=== PATIENT | female | born 1940 | race Caucasian/White ===

== ENCOUNTER 2021-04-26 10:14 | Emergency (ER) | payer MEDICARE, SELFPAY ==
[2021-04-26] VITALS (10 sets, daily range): BP systolic 135–170; BP diastolic 65–81; PULSE 58–75; RESP 16; TEMP 36.9; O2SAT 94–98; BMI 24.1
--- NOTE | 2021-04-26 10:36 | DI.RAD.S_ITS ---
PROCEDURE: XR RIBS LT MIN 3V W CXR1V INDICATIONS: mechanical fall/pain TECHNIQUE: 2 views of the right ribs were acquired, along with a single view chest. COMPARISON: None. FINDINGS: Surgical changes and devices: None. Bones and chest wall: No fractures or dislocations. No suspicious bony lesions. Overlying soft tissues appear unremarkable. Lungs and pleura: No pleural effusions or pneumothorax. Lungs appear clear. Mediastinum: Mediastinal contours appear normal. Heart size is normal. IMPRESSION: No trauma found. No pneumothorax identified. Delayed plain films may assist in identifying nondisplaced rib fractures if clinically indicated, and nuclear medicine bone scan would provide a very accurate method for detecting rib injury if clinically necessary. Dictated by: Byron Concepcion M.D. on 04/26/2021 at 11:14 Approved by: Byron Concepcion M.D. on 04/26/2021 at 11:19
--- NOTE | 2021-04-26 10:36 | DI.RAD.S_ITS ---
PROCEDURE: XR HIP W PEL IF DONE LT 2V INDICATIONS: mechanical fall/pain TECHNIQUE: AP pelvis with lateral view(s) of the left hip(s). COMPARISON: [facility], CR, XR FEMUR LT MIN 2V, 04/26/2021, 10:35. FINDINGS: Bones: Prior left hip screw fixation. No hardware fracture. No fractures or dislocations. Pelvic ring appears intact. No suspicious bony lesions. Soft tissues: The visualized bowel gas pattern is normal. No suspicious soft tissue calcifications. IMPRESSION: No acute osseous abnormality. No acute fracture or hardware fracture seen. Prior screw fixation of the left hip. Dictated by: Luis Carter M.D. on 04/26/2021 at 11:30 Approved by: Luis Carter M.D. on 04/26/2021 at 11:31
--- NOTE | 2021-04-26 10:36 | DI.RAD.S_ITS ---
PROCEDURE: XR FEMUR LT MIN 2V INDICATIONS: mechanical fall/pain TECHNIQUE: 4 views of the femur were acquired. COMPARISON: [facility], CR, XR HIP W PEL IF DONE LT 2V, 04/26/2021, 10:35. FINDINGS: Bones: No femoral shaft fracture. A prior left hip screw fixation hardware. No dislocations. No suspicious bony lesions. Soft tissues: No suspicious soft tissue calcifications or masses. IMPRESSION: No femoral shaft fracture. Dictated by: Luis Carter M.D. on 04/26/2021 at 11:31 Approved by: Luis Carter M.D. on 04/26/2021 at 11:33
--- NOTE | 2021-04-26 10:39 | DI.CT.S_ITS ---
PROCEDURE: CT HEAD/BRAIN WO CON INDICATIONS: fall/hit head TECHNIQUE: Noncontrast 4.5 mm thick angled axial sections acquired from the foramen magnum to the vertex, with coronal and sagittal reformats. For radiation dose reduction, the following was used: automated exposure control, adjustment of mA and/or kV according to patient size. COMPARISON: None. FINDINGS: Image quality: Excellent. CSF spaces: Basal cisterns are patent. No extra-axial fluid collections. The ventricles are symmetric in size and shape. Brain: No intracranial bleeds or masses. There is cerebral volume loss for age, with resultant ventricular and sulcal prominence. There are periventricular and deep white matter chronic small vessel ischemic changes. There is intracranial internal carotid artery atherosclerosis. Skull and face: Postsurgical changes are noted involving anterior wall of left maxillary sinus. No acute skull or facial bone fracture is seen. Sinuses: Mild mucosal thickening in bilateral maxillary sinuses are seen. Rest of the sinuses and mastoid air cells are well aerated. IMPRESSION: 1. No CT evidence of acute intracranial pathology. 2. Diffuse atrophy and moderate white matter chronic small vessel ischemic changes. 3. No acute skull fracture. Prior surgery involving left maxillary sinus as above. Mild mucosal thickening in bilateral maxillary sinuses. Dictated by: Jeyson Vega M.D. on 04/26/2021 at 10:53 Approved by: Jeyson Vega M.D. on 04/26/2021 at 10:55
[2021-04-26] MEDS: HYDROCODONE/ACET 5/325 TABLET 2 TAB PO (14:34)
--- NOTE | 2021-04-26 14:48 | PC.NURSE ---
Pt given a walker and walker training.
--- NOTE | 2021-04-26 14:53 | ED_ITS ---
HPI - Fall General Chief Complaint: Fall Stated Complaint: fell yesterday, can't walk on left side Time Seen by Provider: 04/26/21 14:22 Source: patient Limitations: no limitations History of Present Illness HPI Narrative: This is an 80-year-old female comes emergency department after a ground level fall. Patient states that she tripped and fell. She states she did strike her head. She does take aspirin. Patient denies any headache, neck pain or low back pain. Patient has had some mild left-sided chest discomfort but not currently. She denies any shortness of breath. No nausea or vomiting. No dizziness or lightheadedness. Patient denies any numbness or tingling of her extremities. Her main complaint is pain/discomfort in her left upper thigh. She has pain with movement and weight-bearing. She denies any numbness or ti ngling. She has chronic urinary issues but no acute changes. No new l changes to bowel or bladder control. Patient has not appreciated any skin changes. She walks independently without a walker but does use a cane at home. Related Data Previous Rx's Medication Instructions Recorded hydrocodone 5 mg-acetaminophen 325 1 tab PO Q6H PRN #10 tab 04/26/21 mg tablet Allergies Allergy/AdvReac Type Severity Reaction Status Date / Time No Known Drug Allergies Allergy Verified 04/26/21 14:34 Review of Systems Review of Systems ROS Unobtainable: All systems reviewed & are unremarkable except as noted in HPI and below Exam Narrative Exam Narrative: GEN: Patient appears in mild distress. HEAD: No evidence of trauma, no raccoon/Cortez sign. NECK: Nontender, painless range of motion, trachea midline Negative Nexus criteria, there is no mid line tenderness, distracting injury, altered mental status, neuro deficit, recent EtOH. EYES: PERRLA, EOMI ENT: External inspection normal, trachea is midline, Nares are clear, no septal hematoma, no dental or oral injury, airway is normal and with normal occlusion, No bony tenderness RESP: Chest is nontender and has symmetric movement, no ecchymosis, breath sounds are normal no crackles, wheezes or rales CVS: Heart sounds are normal, no murmur noted, No JVD. ABG/GI: Nontender, soft, normal bowel sounds, no distention, no organomegaly, pelvic rock is negative NEURO: Oriented AOx3, neuro is grossly intact, sensation and motor is normal all 4 extremities moving, cranial nerves II through XII are intact, GCS is 15 PSYCH: Normal mood and affect SKIN: Intact, warm and dry, no crepitus and without decubitus BACK: No CVA tenderness, no vertebral tenderness, no step-off's, no crepitus EXT: Atraumatic, hips is very mildly tender to palpation. Patient has pain with active range of motion and is mildly increased with passive but not significantly on the left leg. She does not have any bony tenderness delgado of the lower extremity., no pedal edema, normal color and temperature, cap refill bilateral lower extremities. Initial Vital Signs Initial Vital Signs: Vital Signs Temperature 98.4 F 04/26/21 10:34 Pulse Rate 71 04/26/21 10:34 Respiratory Rate 16 04/26/21 10:34 Blood Pressure 159/81 H 04/26/21 10:34 Pulse Oximetry 97 04/26/21 10:34 Scores GCS Commerce coma scale eye opening: Spontaneous Commerce coma scale verbal response: Orientated Commerce coma scale motor response: Obey commands Jamel coma scale total score: 15 Course Orders Ordered: Discontinued Medications Hydrocodone Bitart/Acetaminophen (Hydrocodone/Acet 5/325 Tablet) 2 tab PO NOW ONE Stop: 04/26/21 14:23 Last Admin: 04/26/21 14:34 Dose: 2 tab Documented by: BOBBI Vital Signs Vital signs: Vital Signs - 8 hr 04/26/21 12:49 04/26/21 12:50 04/26/21 13:00 Pulse Rate 59 L 58 L 59 L Blood Pressure 155/67 H 135/65 Pulse Oximetry 96 94 97 04/26/21 13:30 04/26/21 13:31 04/26/21 14:00 Pulse Rate 71 67 63 Blood Pressure 166/69 H Pulse Oximetry 97 97 95 04/26/21 14:01 04/26/21 14:42 Pulse Rate 60 75 Blood Pressure 153/67 H 170/68 H Pulse Oximetry 95 97 MDM - Fall Imaging Data CT scan - head: Radiologist's Impression: [address] [id number] Scan ReportSigned Patient: BakerEvi taylor KOBER#: [id number]: 1940Acct:[id number]/Sex: 80 / FDate of Service: 04/26/21Loc: EDAccession Number: [id number] Procedure: CT head/brain wo con Ordering Provider: Marietta Kent D.O. PROCEDURE: CT HEAD/BRAIN WO CON INDICATIONS: fall/hit head TECHNIQUE: Noncontrast 4.5 mm thick angled axial sections acquired from the foramen magnum to the vertex, with coronal and sagittal reformats. For radiation dose reduction, the following was used: automated exposure control, adjustment of mA and/or kV according to patient size. COMPARISON: None. FINDINGS: Image quality: Excellent. CSF spaces: Basal cisterns are patent. No extra-axial fluid collections. The ventricles are symmetric in size and shape. Brain: No intracranial bleeds or masses. There is cerebral volume loss for age, with resultant ventricular and sulcal prominence. There are periventricular and deep white matter chronic small vessel ischemic changes. There is intracranial internal carotid artery atherosclerosis. Skull and face: Postsurgical changes are noted involving anterior wall of left maxillary sinus. No acute skull or facial bone fracture is seen. Sinuses: Mild mucosal thickening in bilateral maxillary sinuses are seen. Rest of the sinuses and mastoid air cells are well aerated. IMPRESSION: 1. No CT evidence of acute intracranial pathology. 2. Diffuse atrophy and moderate white matter chronic small vessel ischemic changes. 3. No acute skull fracture. Prior surgery involving left maxillary sinus as above. Mild mucosal thickening in bilateral maxillary sinuses. Dictated by: Jeyson Vega M.D. on 04/26/2021 at 10:53 Approved by: Jeyson Vega M.D. on 04/26/2021 at 10:55 Chest x-ray: Radiologist's Impression: Evi Baker 80 F [address] [id number] ReportSigned Patient: Baker,Evi JMR#: [id number]: 1940Acct:[id number]/Sex : 80 / FDate of Service: 04/26/21Loc: EDAccession Number: [id number] Procedure: XR ribs LT min 3V w CXR1V Ordering Provider: Mank,Marietta C D.O. PROCEDURE: XR RIBS LT MIN 3V W CXR1V INDICATIONS: mechanical fall/pain TECHNIQUE: 2 views of the right ribs were acquired, along with a single view chest. COMPARISON: None. FINDINGS: Surgical changes and devices: None. Bones and chest wall: No fractures or dislocations. No suspicious bony lesions. Overlying soft tissues appear unremarkable. Lungs and pleura: No pleural effusions or pneumothorax. Lungs appear clear. Mediastinum: Mediastinal contours appear normal. Heart size is normal. IMPRESSION: No trauma found. No pneumothorax identified. Delayed plain films may assist in identifying nondisplaced rib fractures if clinically indicated, and nuclear medicine bone scan would provide a very accurate method for detecting rib injury if clinically necessary. Dictated by: Byron Concepcion M.D. on 04/26/2021 at 11:14 Approved by: Byron Concepcion M.D. on 04/26/2021 at 11:19 Extremity x-ray #1: Radiologist's Impression: [address] [id number] ReportSigned Patient: Evi Baker JMR#: [id number]: 1940Acct:[id number]/Sex: 80 / FDate of Service: 04/26/21Loc: [facility] corwin Number: [id number] Procedure: XR hip w pel if done LT 2V Ordering Provider: Marietta Kent D.O. PROCEDURE: XR HIP W PEL IF DONE LT 2V INDICATIONS: mechanical fall/pain TECHNIQUE: AP pelvis with lateral view(s) of the left hip(s). [facility], 10:35. FINDINGS: Bones: Prior left hip screw fixation. No hardware fracture. No fractures or dislocations. Pelvic ring appears intact. No suspicious bony lesions. Soft tissues: The visualized bowel gas pattern is normal. No suspicious soft tissue calcifications. IMPRESSION: No acute osseous abnormality. No acute fracture or hardware fracture seen. Prior screw fixation of the left hip. Dictated by: Luis Carter M.D. on 04/26/2021 at 11:30 Approved by: Luis Carter M.D. on 04/26/2021 at 11:31 Extremity x-ray #2: Radiologist's Impression: [address], [place] [address]RZuk ReportSigned Patient: Evi Baker JMR#: [id number]: 1940Acct:[id number]/Sex: 80 / FDate of Service: 04/26/21Loc: EDAccession Number: [id number] Procedure: XR femur LT min 2V Ordering Provider: Marietta Kent D.O. PROCEDURE: XR FEMUR LT MIN 2V INDICATIONS: mechanical fall/pain TECHNIQUE: 4 views of the femur were acquired. COMPARISON: [facility], CR, XR HIP W PEL IF DONE LT 2V, 04/26/2021, 10:35. FINDINGS: Bones: No femoral shaft fracture. A prior left hip screw fixation hardware. No dislocations. No suspicious bony lesions. Soft tissues: No suspicious soft tissue calcifications or masses. IMPRESSION: No femoral shaft fracture. Dictated by: Luis Carter M.D. on 04/26/2021 at 11:31 Approved by: Luis Carter M.D. on 04/26/2021 at 11:3 MDM Narrative Medical decision making narrative: This is an 80-year-old female with ground level fall who continues to have left thigh pain. Patient has had pain with ambulation. She has not been taking anything for pain. She did strike her head. Head CT was negative patient was clinically cleared for cervical spine. She does not have any rib fractures. Hip/pelvic and femur x-rays are negative and patient has mild tenderness on her greater trochanter. Patient was given Logan his apartment and ambulated with walker which she tolerated. Patient was given discharge instructions with plan for follow-up in the next week patient is not improving and return precautions were discussed as well. All questions were answered patient feels comfortable with plan. Discharge Plan Departure Patient Disposition: Home Clinical Impression: Fall Leg pain Qualifiers: Laterality: left Qualified Code(s): M79.605 - Pain in left leg Instructions: How to Prevent Falls, DI for Hip Pain Prescriptions: New hydrocodone-acetaminophen 5-325 mg tablet 1 tab PO Q6H PRN (Reason: pain) Qty: 10 RF: 0 Referrals: Olivia Vitale PA-C [Primary Care Provider] -
== END 2021-04-26 14:53 | disposition home or self-care (01) ==
PROVIDERS: Emergency Provider Emergency Medicine; PCP Physician Assistant Medical
DX: M79.652 Pain in left thigh (principal); S09.90XA Unspecified injury of head, initial encounter; W19.XXXA Unspecified fall, initial encounter
CPT/HCPCS: 70450; 71101; 73502; 73552; 99284

== ENCOUNTER → 2024-06-05 08:37 | Outpatient (CLI) | payer MEDICARE, SELFPAY ==
[2024-06-05 09:23] LABS: Add Manual Diff / Slide Review NO; Basophils Absolute Auto 100 /uL (0-100); Basophils Percent Auto 0.7 % (0-2); Eosinophils Absolute Auto 300 /uL (0-450); Eosinophils Percent Auto 3.4 % (2-4); Hematocrit 38.7 % (36-46); Hemoglobin 13.3 g/dL (12.0-16.0); Lymphocytes Absolute Auto 3400 /uL (1100-4500); Lymphocytes Percent Auto 37.7 % (25-40); Mean Corpuscular HGB Conc 34.3 % (30-36); Mean Corpuscular Hemoglobin 32.5 PG (26-34); Monocytes Absolute Auto 900 /uL (0-900); Monocytes Percent Auto 9.9 % (3-14); Neutrophils Absolute Auto 4300 /uL (1500-7000); Neutrophils Percent Auto 48.3 % (50-75); Platelet Count 218 X10^3/uL (150-400); Red Blood Cell Count 4.08 X10^6/uL (4.0-5.2); Red Cell Distribution Width 12.9 % (11.6-14.8); White Blood Cell Count 8.9 X10^3/uL (4.5-11.0)
[2024-06-05 09:25] LABS: Appearance Urine UA CLEAR; Bilirubin Urine UA NEGATIVE (NEGATIVE); Color Urine UA YELLOW; Glucose Urine UA NEGATIVE (Negative); Ketones Urine UA NEGATIVE (NEGATIVE); Leukocyte Esterase Urine UA 1+ (NEGATIVE); Nitrite Urine UA NEGATIVE (Negative); Occult Blood Urine UA TRACE-INTACT (Negative); Protein Urine UA NEGATIVE (Negative); Specific Gravity Urine UA 1.015 (1.000-1.035)
[2024-06-05 09:29] LABS: pH Urine UA 6.5 (4.5-8.0)
--- NOTE | 2024-06-05 09:36 | EKG_ITS ---
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
[2024-06-05 09:40] LABS: Hemoglobin A1C% w Est Avg Glu 5.2 % (4.0-6.0)
[2024-06-05 09:43] LABS: Urine Volume 10mL (spun)
[2024-06-05 09:44] LABS: Bacteria Urine Moderate (10-30); Culture Indicated Urine Specimen Cultured; RBC Urine 0-1/HPF (0-5/HPF); Squamous Epithelial Cell Urine 1-5 /HPF (0-5/HPF); WBC Urine 1-5/HPF (0-5/HPF)
[2024-06-05 09:47] LABS: BUN Creatinine Ratio 32.7 (6-22); Blood Urea Nitrogen 17 mg/dL (7-17); Calcium 9.4 mg/dL (8.4-10.2); Carbon Dioxide 24 mmol/L (22-32); Chloride 108 mmol/L (98-107); Estimated Glomerular Filt Rate > 60 mL/min (>60); Glucose 99 mg/dL (80-110); HEMOLYSIS < 15 (0-50); Potassium 4.2 mmol/L (3.4-5.1); Sodium 139 mmol/L (137-145)
== END ==
PROVIDERS: PCP Physician Assistant Medical; Referring Provider Orthopaedic Surgery; Visit Provider Orthopaedic Surgery
DX: Z01.818 Encounter for other preprocedural examination (principal); R73.9 Hyperglycemia, unspecified; Z01.812 Encounter for preprocedural laboratory examination; N39.0 Urinary tract infection, site not specified
CPT/HCPCS: 36415; 80048; 81001; 83036; 85025; 87086; 93005; 93010

== ENCOUNTER 2024-06-17 08:50 | Day surgery (SDC) | payer MEDICARE, SELFPAY ==
--- NOTE | 2024-06-17 | PATH_ITS ---
[facility] Accession Number: [id number] No. of containers..01 Tissue . 01 Material submitted: . colon - DISTAL TRANSVERSE COLON POLYP . 01 Diagnosis: DISTAL TRANSVERSE COLON POLYP: Tubular adenoma. [facility] 06/22/2024 1325 Local . 01 Electronically signed: . Jhonny Barajas MD, Pathologist NPI- [id number] . 01 Gross description: . Received in formalin with two patient identifiers and distal transverse colon polyp, is a single bridges soft tissue fragment, 0.7 x 0.5 x 0.4 cm. Inked blue, bisected, and submitted in A1. ([id number]) /MRV 06/22/2024 1325 Local . 01 Pathologist provided ICD-10: D12.3 . 01 CPT . 885287 Specimen Comment: A courtesy copy of this report has been sent to [phone] Performed at: [address] [address], [place], [place] [id number] MD Jhonny Barajas MD Phone: [phone]
[2024-06-17 10:31] VITALS: BP 139/73; PULSE 71; RESP 14; TEMP 36.2; O2SAT 98
--- NOTE | 2024-06-17 10:39 | PM.HP.1 ---
History of Present Illness History of Present Illness Date Patient Seen: 06/17/24 Chief complaint: Colonoscopy Narrative: History of adenomatous colon polyps need for follow-up colonoscopy. Meds Home Medications and Allergies Home Medications Medication Instructions Recorded Confirmed Type amlodipine 5 mg tablet 5 mg PO DAILY blood pressure 06/17/24 06/17/24 History atorvastatin 40 mg tablet 40 mg PO QPM cholesterol 06/17/24 06/17/24 History levothyroxine 50 mcg tablet 50 mcg PO DAILY 06/17/24 06/17/24 History Allergies Allergy/AdvReac Type Severity Reaction Status Date / Time No Known Drug Allergies Allergy Verified 06/17/24 10:29 Exam Narrative Exam Narrative: Oropharynx free of lesions Chest clear to auscultation percussion Cardiac exam reveals no S3 or murmur Assessment & Plan Assessment & Plan narrative: History of adenomatous colon polyps need for follow-up colonoscopy. Risks, benefits, alternatives have been explained. In all likelihood this will be her last colonoscopy Time-Based Coding :: [TOTAL MINUTES] spent with patient and on the chart (including review of chart, obtaining history, exam, reviewing outside data, placing orders, documenting exam and treatment plan, and counseling patient) on [DATE].
[2024-06-17] MEDS: LACTATED RINGERS 1,000 ML 42 ML IV (10:41)
--- NOTE | 2024-06-17 10:41 | PM.OP.COLON ---
Operative Date/Time/Diagnoses Date of procedure: 06/17/24 Pre-op diagnosis: See indication and findings Procedure & Clinicians Study performed: Colonoscopy Indications: History of polyps Surgeon: Keanu Rivera Procedure Notes Procedure in detail: After informed consent was obtained the patient was placed in left lateral decubitus position. The video colonoscope was introduced the rectum slowly advanced cecum. Preparation was good. On slow withdrawal mucosa was carefully examined. The scope was removed. The patient tolerated procedure well. Blood loss none Complications none Sedation mac Findings 1. 1+ cm semi pedunculated polyp in the distal transverse colon hot snared and removed completely. 2. Extensive left-sided diverticulosis and of fairly tortuous colon 3. Otherwise negative colonoscopy to cecum Will be in touch regarding her pathology. She should have no recall.
[2024-06-17 12:00] VITALS: BP 105/54; PULSE 69; RESP 20; TEMP 36; O2SAT 95
[2024-06-17 12:05] VITALS: BP 105/57; PULSE 68; RESP 18; O2SAT 95
[2024-06-17 12:10] VITALS: BP 121/57; PULSE 67; RESP 13; O2SAT 97
[2024-06-17 12:20] VITALS: BP 112/56; PULSE 64; RESP 17; O2SAT 97
== END 2024-06-17 12:38 | disposition home or self-care (01) ==
PROVIDERS: PCP Physician Assistant Medical; Referring Provider Internal Medicine Gastroenterology; Visit Provider Internal Medicine Gastroenterology
PROC: 0DJD8ZZ Inspection of Lower Intestinal Tract, Via Natural or Artificial Opening Endoscopic (ICD-10-PCS; CPT 45378; principal; 2024-06-17 11:00)
DX: Z12.11 Encounter for screening for malignant neoplasm of colon (principal); Z86.010 Personal history of colon polyps; K57.30 Diverticulosis of large intestine without perforation or abscess without bleeding; D12.3 Benign neoplasm of transverse colon
CPT/HCPCS: 45385; J2704

== ENCOUNTER 2024-06-25 08:02 | Inpatient (IN) | payer MEDICARE, SELFPAY ==
[2024-06-24 09:36] VITALS: BMI 23.3
[2024-06-25] VITALS (25 sets, daily range): BP systolic 95–143; BP diastolic 44–77; PULSE 70–97; RESP 12–20; TEMP 35.8–36.8; O2SAT 90–100; BMI 23.3
--- NOTE | 2024-06-25 | DI.RAD.S_ITS ---
PROCEDURE: XR PELVIS 1-2V INDICATIONS: INTER OP FOR RONY TECHNIQUE: Intra-operative view of the pelvis and hip acquired. COMPARISON: None. FINDINGS: Bones: Intraoperative devices prior to placement of arthroplasty prostheses are in expected positions. No fractures or suspicious bony lesions. Soft tissues: Overlying surgical retractors are present, along with other intraoperative changes. IMPRESSION: Left total hip arthroplasty in progress Approved by: Junior Overton M.D. on 06/25/2024 at 17:10
--- NOTE | 2024-06-25 06:45 | DI.RAD.S_ITS ---
PROCEDURE: XR HIP W PEL IF DONE LT 2V INDICATIONS: total left hip revision TECHNIQUE: AP pelvis with lateral view(s) of the left hip(s). COMPARISON: [facility], CR, XR PELVIS 1-2V, 06/25/2024, 13:02. [facility] [place], CR, XR PELVIS WITH LATERAL HIP LEFT, 06/03/2024, 15:27. [facility], CR, XR HIP W PEL IF DONE LT 2V, 04/26/2021, 10:35. FINDINGS: Bones: Left hip arthroplasty projects in the expected location. Retained screw fragment at the proximal left femur is unchanged. No acute fracture. No dislocations. Pelvic ring appears intact. No suspicious bony lesions. Soft tissues: The visualized bowel gas pattern is normal. No suspicious soft tissue calcifications. Skin staple line. Expected postoperative gas. IMPRESSION: Left hip arthroplasty projects in the expected location. Dictated by: Luis Carter M.D. on 06/25/2024 at 16:51 Approved by: Luis Carter M.D. on 06/25/2024 at 16:53
[2024-06-25] MEDS: VANCOMYCIN 1,000 MG/200 ML PIGGYBACK 200 MG IV (08:36)
[2024-06-25] MEDS: ACETAMINOPHEN 325 MG TABLET 975 MG PO (08:36)
[2024-06-25] MEDS: LACTATED RINGERS 1,000 ML 84 ML IV ×2 (08:37→13:33)
--- NOTE | 2024-06-25 10:12 | PM.PREOP ---
Pre-operative Note Interval Note History & Physical reviewed/Exam performed by Physician: Yes Changes to H&P: No
--- NOTE | 2024-06-25 10:13 | PM.OP.1 ---
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 Non-operative management has failed and the patient has requested total hip replacement. The risks, benefits and alternatives to surgery were discussed with the patient prior to proceeding. Risks discussed included, but were not limited to, failure to relieve pain, leg length discrepancy, dislocation, stiffness, infection, nerve damage, deep venous thrombosis, pulmonary embolism, stroke, coma, heart attack, permanent paralysis and , as well as the potential need for eventual revision of the prosthetic. Surgeon: Tenisha William It Disaster Recovery Manager: Antonio Campos Anesthesia Type: General and Spinal Operative Notes Findings: Severe left hip OA, adequate bone Closure Type: primary Specimen(s): none sent Prosthetic devices, grafts, tissues, transplants, or devices: William and nephew R3 size 50, neutral poly liner, one 6.5 mm screw, size 11 synergy standard offset, 36 x +0 Estimated Blood Loss (mL): 250 Blood products transfused: none Procedure in detail: The patient was seen in the pre-operative area, where the patient identified the left hip as the operative site and this was marked with my initials. The patient received pre-operative antibiotics and was taken to the operating room and placed on the operative table in the right lateral decubitus position after satisfactory anesthesia. A second time worker out was performed. The left leg was prepared from the ankle to the iliac crest with ChloroPrep in the usual fashion and draped through sterile drapes. A PA was used during the procedure and was essential for intraoperative retraction and safe implantation of the components. The hip was approached through an approximately 24 cm incision centered over the greater trochanter and curving gently posteriorly as it went proximally. It was also extended so it could incorporate part of the prior extensive incision for the previous dynamic hip screw plate. This was carried sharply to the fascia selam, which was divided and retracted with a self retaining retractor. The trochanteric bursa was excised with care being taken to avoid the sciatic nerve, which was identified and protected throughout the case. The short external rotators were incised and the capsulomuscular flap was raised and tagged for later repair. The hip was dislocated. Next attention was directed to the plate. Dissection was carried out down along the plate screws. The screws were was meticulously identified. The plate was carefully removed after removing the screws. One of the screw heads was broken. We removed the plate and then we dissected down around the broken screw head. We used the broken screw removal system and over reamed over the screw and removed a portion of the screw which was captured in the Reamer. The femoral head screw was very very adherent to bone. I dislocated the hip prior to attempting to remove the femoral head screw. We tried to turn the femoral head screw and it was clearly very stuck in the bone. A Femoral neck osteotomy performed approximately 15 mm above the lesser trochanter. I then used an oscillating saw to remove the bone from around the femoral head screw. We carefully dissected it out cephalad to the femoral neck cut. The femoral head screw was then removed by advancing it into the hip region. Bone from the femoral head was saved and was prepared for packing some of the holes along the lateral aspect of the femur. Retractors were placed around the femur. The canal was opened with a box cutting osteotome, followed by a T handled reamer and a lateralizing reamer. The smallest broach was then used, followed by sequential broaching until there was good stability of the broach in the femur. There was adequate stability of the broach in the femur and it was felt we could probably go with uncemented technology. Retractors were placed to expose the acetabulum. The labrum and central soft tissues were removed. Reaming was performed initially going up in 2 mm increments, then 1 mm increments until good bite was obtained with an odd sized reamer. The cup 1 mm larger than the last reamer was then inserted using the appropriate anteversion guides. It was further stabilized with a single screw. A trial neutral liner was placed. The broach was placed in the canal. A trial head and neck were then placed and the hip relocated and checked for leg length and stability. An intraoperative film confirmed the component position and no evidence of fracture. There was a portion of 1 of the screws still noted in the femur more distally. The leg length and offset appeared appropriate. The patient was stable in the position of sleep, of squatting, and could be put through a range of motion with 45 degrees internal rotation without dislocation. At 90 degrees flexion, internal rotation to 80? was possible before dislocation. This was felt to be satisfactory and the appropriate components were opened, and the trials were removed. The acetabular liner was impacted into position. The final stem was then impacted into the prepared femoral canal. A brief Betadine soak was performed while trialing with head options. The hip was meticulously irrigated with normal saline. We got 1 more check x-ray just to confirm the position of the stem distally, the relationship to the broken screw, leg length and offset and that there was no fracture either proximally or distally. Finally the femoral head was impacted onto the stem. The acetabulum was cleared of all material and the hip relocated one final time. The capsulomuscular flap was then repaired to the greater trochanter though an awl hole using the tag sutures. The short external rotators were repaired with a nonabsorbable suture. A Betadine soak was performed and we also used pulse lavage. The fascia selam was closed with Vicryl. We also oversewed the fascia and the vastus lateralis fascia. The subcutaneous layer was closed with barbed sutures and surgical glue. A kira dressing was applied and the patient was taken to recovery having tolerated the procedure well. Complications: none Post-operative Condition: stable Disposition: Acute Care Plan for aftercare: The patient will be maintained on a standard total hip replacement protocol with weight bearing as tolerated and posterior hip precautions. The patient will receive Aspirin and sequential compression devices for DVT prophylaxis. The patient will be discharged home when safe for the home environment.
[2024-06-25] MEDS: CEFAZOLIN 2 GM/100 ML PREMIX 100 ML IV ×2 (11:30→19:37)
[2024-06-25] MEDS: TRANEXAMIC ACID 1,000 MG VIAL 1000 MG INJ ×2 (11:36→13:33)
--- NOTE | 2024-06-25 11:41 | SUR.OPER ---
Lateral on padded OR bed. Gel axillary roll. Arms secured on padded armboard with pillow supporting top arm. Padded hip positioner braces x4 - anterior and posterior chest and pelvis. Additional gel pad used anterior pelvis. Gel pad under bottom leg from knee to foot and secured with tape over sheet.
[2024-06-25] MEDS: BUPIVACAINE LIPOSOME 266 MG/20 ML VIAL INJ (11:49)
[2024-06-25] MEDS: BUPIVACAINE 0.25% (PF) 60 ML, EPINEPHrine 0.3 MG INJ (11:49)
[2024-06-25] MEDS: ONDANSETRON 4 MG/2 ML INJ IV (14:33)
[2024-06-25] MEDS: HYDROMORPHONE 1 MG INJ IV ×4 (14:34→14:49)
[2024-06-25] MEDS: OXYCODONE IR 5 MG TABLET PO (14:49)
[2024-06-25] MEDS: fentaNYL 100 MCG/2 ML INJ IV ×2 (14:57→15:03)
[2024-06-25] MEDS: ACETAMINOPHEN 325 MG TABLET 650 MG PO (16:42)
[2024-06-25] MEDS: LACTATED RINGERS 1,000 ML 100 ML IV (16:52)
[2024-06-25] MEDS: ATORVASTATIN 20 MG TABLET 40 MG PO (16:54)
--- NOTE | 2024-06-25 17:00 | PC.NURSE ---
1551 Pt arrived in bed from PACU, alert and oriented, VSS, on 2L NC post medication administration sats 99%, able to wean to room air 96%. dressing to L hip CDI with MARCIE drain in place. Pain 3/10 upon arrival. Oriented to room and call light system, daughter Scarlet at bedside, no further needs at this time, bed low and locked, call light within reach, will continue to monitor.
[2024-06-25] MEDS: IBUPROFEN 400 MG TABLET PO (19:39)
[2024-06-25] MEDS: DOCUSATE 100 MG CAPSULE PO (20:51)
[2024-06-25] MEDS: ASPIRIN EC 81 MG TABLET PO (20:51)
[2024-06-26] MEDS: ACETAMINOPHEN 325 MG TABLET 650 MG PO ×2 (00:50→09:20)
[2024-06-26] MEDS: CEFAZOLIN 2 GM/100 ML PREMIX 100 ML IV (02:54)
[2024-06-26 03:04] VITALS: BP 117/59; PULSE 74; RESP 18; TEMP 36.1; O2SAT 91
[2024-06-26] MEDS: LEVOTHYROXINE 50 MCG TABLET PO (05:55)
[2024-06-26 06:25] LABS: Hematocrit 33.9 % (36-46); Hemoglobin 11.6 g/dL (12.0-16.0)
--- NOTE | 2024-06-26 07:43 | PM.DS.1 ---
History of Present Illness History of Present Illness Date Patient Seen: 06/26/24 Time Patient Seen: 07:30 Chief complaint: Left Total Hip Arthroplasty Narrative: The patient has had progressively worsening left hip pain with radiographic changes consistent with arthritis. Non-operative management has failed and the patient has requested total hip replacement. The risks, benefits and alternatives to surgery were discussed with the patient prior to proceeding. Risks discussed included, but were not limited to, failure to relieve pain, leg length discrepancy, dislocation, stiffness, infection, nerve damage, deep venous thrombosis, pulmonary embolism, stroke, coma, heart attack, permanent paralysis and , as well as the potential need for eventual revision of the prosthetic. Discharge Providers Provider Date of admission: 06/25/24 08:02 Discharge Date: 06/26/24 Primary care physician: Olivia Vitale PA-C Consults: 06/25/24 06:45 Consult to Anesthesiology Routine Comment: Consulting Provider: Anesthesiologist Reason for consultation: Regional block for post operative pain control Has provider been notified: No 06/25/24 15:52 Consult to Discharge Planning Routine Comment: Consult to Occupational Therapy Evaluate & Treat Comment: Physician Instructions: Evaluate and treat Consult to Physical Therapy Evaluate & Treat Comment: Physician Instructions: post op RONY protocol Discharge provider: Romain Cho PA-C Summary Hospital Course Discharge Diagnosis: 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 Hospital Course: Procedure: Conversion prior left hip surgery to total hip arthroplasty with removal of retained internal fixation and placement of a left total hip arthroplasty Findings: Severe left hip OA, adequate bone Closure Type: primary Specimen(s): none sent Prosthetic devices, grafts, tissues, transplants, or devices: William and nephew R3 size 50, neutral poly liner, one 6.5 mm screw, size 11 synergy standard offset, 36 x +0 Estimated Blood Loss (mL): 250 Blood products transfused: none Status at Discharge Cognitive/behavioral status at discharge: oriented Functional status at discharge: uses cane/walker Overall status at discharge: patient is back to baseline Time Spent with Patient Time spent: Less than 30 minutes Exam Vital Signs (past 8 hours): - 06/26/24 03:04 Temperature 97 F L Pulse Rate 74 Respiratory Rate 18 Blood Pressure 117/59 L Pulse Oximetry 91 Oxygen Flow Rate 0 Fraction of Inspired Oxygen 28 SaO2/FiO2 Ratio 350 Oxygen Delivery Method Nasal Cannula Oxygen Flow Rate 0 Narrative Exam Narrative: Patient is found sitting comfortably in bed. Pain has been controlled with only Tylenol. She is able to get up with assistance 3 times in the evening and urinate on her own. Denies any new numbness or tingling down the left leg. Certain like to discharge home Kira dressing appears to be intact and functioning appropriately. No increased pain or warmth noted with compression of the bilateral posterior calf and thigh. 5/5 Strength in hip flexors, quadricepts, hamstrings, DF, PF, EHL bilaterally. Sensation to light touch intact througout BLE. Objective Labs 06/26/24 06:07 Labs: Laboratory Results - last 24 hr 06/26/24 06:07 Hgb 11.6 L Hct 33.9 L PFSH Medical History (Updated 06/24/24 @ 10:04 by Faby Price RN) HTN (hypertension) Hyperchloremia CVA (cerebral vascular accident) (~2018) Hypothyroid Surgical History (Updated 06/24/24 @ 10:23 by Faby Price RN) History of open reduction and internal fixation (ORIF) procedure (~1999) History of colonoscopy (06/17/24) Social History household members: none Smoking Status: Never smoker alcohol intake: current Discharge Assessment & Plan Assessment and Plan Assessment: Status post total hip arthroplasty revision posterior approach. Plan of Treatment: Plan discharge home pending PT approval. Baseline multimodal pain control with acetaminophen 500 mg and ibuprofen 400 mg every 4 hours. Breakthrough pain with oxycodone 5 mg every 4 hours PRN. Prescribe Zofran 4 mg Q 8 hours as needed for postoperative nausea. Aspirin 81 mg b.i.d. for 6 weeks for DVT prophylaxis. Ambulate with assistive devices as tolerated. Posterior hip precautions. Start physical therapy in 5-10 days. Follow up in clinic in 2 weeks for wound check. Discharge Plan Discharge Plan Patient Disposition: Home Provider Discharge Comment: DC pendint PT approval Discharge orders & Medications Prescriptions: Continued amlodipine 5 mg tablet 5 mg PO DAILY atorvastatin 40 mg tablet 40 mg PO QPM levothyroxine 50 mcg tablet 50 mcg PO DAILY Changed aspirin 81 mg Tablet,Delayed Release (Dr/Ec) 81 mg PO BID Qty: 90 0RF Follow up/Referrals: Olivia Vitale PA-C [Primary Care Provider] - Diet/Activity/Treatments Diet: Diet as Tolerated Activity: Ambulate as tolerated with assistive devices. Cold/Heat Therapy: Apply ice pack to wound site as needed hourly for 15 minutes at a time. Skin/Wound/Dressing Care Report to your healthcare provider any signs of infection, such as:: chills, fever, night sweats, unusual drainage and unusual redness Dressing: Keep dressing clean and dry. May remove kira battery pack after battery . Should dressing become dirty or disrupted replace with gauze and tape. Visit Report/Discharge Packet Stand Alone Forms: Patient Portal/API, Stroke Signs & Symptoms Discharge Data Primary Care Provider: Olivia Vitale VTE Deep Vein Thrombosis/Pulmonary Embolism Present on Admission: No
[2024-06-26 08:00] VITALS: BP 122/59; PULSE 83; RESP 16; TEMP 36.3; O2SAT 99
--- NOTE | 2024-06-26 09:15 | OT.IP.EVAL ---
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) Displaced subtrochanteric fracture of left femur, sequela (06/25/24) Surgery Performed Operation Date: 06/25/24 10:15 Actual Procedures p RONY posterior with Removal of retained internal fixation(Left) - Tenisha William MD Past Medical History (Last Updated 06/24/24 @ 10:04 by Faby Price, RN) CVA (cerebral vascular accident) (~2018) HTN (hypertension) Hyperchloremia Hypothyroid Surgical History (Last Updated 06/24/24 @ 10:23 by Faby Price, RN) History of colonoscopy (06/17/24) History of open reduction and internal fixation (ORIF) procedure (~1999) Occupational Therapy Inpatient Evaluation/Re-Eval M1 PT/OT-IP Prior Functional Status Start: 06/26/24 10:16 Freq: NEEDED Status: Active Protocol: Document 06/26/24 10:16 [facility] (Rec: 06/26/24 10:30 [facility] [id number]) Medical Review Prior Functional Status Communication Independent Mobility and Gait Pt furniture cruises but did not use a device prior. Activities of Daily Living and IADL's Pt states unable to put on her socks. Social History Household Members none Living Arrangements Mobile home Number of Floors (Floors) One Floor Number of Stairs To Enter/Railing? 5 short steps with right rail up Home Environment Standard Height Toilet,Walk in Shower Home Equipment Front Wheel Walker,Straight Cane,Raised Toilet Seat w/ Armrests,Shower Seat with Backrest,Hand Held Shower,Long Handled Sponge,Flight Nurse Additional Social History Comment Pt's daughter lives close by and to stay with her for a couple days. M2 OT-IP Current Condition Start: 06/26/24 10:16 Freq: Status: Active Protocol: Document 06/26/24 10:16 [facility] (Rec: 06/26/24 10:30 [facility] [id number]) Occupational Therapy Current Condition Current Condition Evaluation Date 06/26/24 Treatment Diagnosis S/P L RONY posterior approach Diagnosis Onset Date 06/25/24 Post Operative Precautions Posterior Hip Precautions No Hip Flexion > 90 degrees,No Hip Internal Rotation,No Hip Adduction M3 OT- IP Subjective and Pain Start: 06/26/24 10:16 Freq: Status: Active Protocol: Document 06/26/24 10:16 [facility] (Rec: 06/26/24 10:30 [facility] [id number]) OT- Subjective Occupational Therapy Visit Type Type Initial Evaluation Visit Start Time 09:15 Visit Stop Time 10:00 Occupational Therapy Visit Comments Patient Comments Pt agreed to get up and pt's daughter in the room. Patient/Caregiver Goals TO go home. OT Pain Assessment Pain When Pain Assessed At Rest Pain Present Pain Present Pain Reported Location hip Intensity 5 Scale Used Numeric (0 - 10) M4 OT- IP ADL's Start: 06/26/24 10:16 Freq: Status: Active Protocol: Document 06/26/24 10:16 [facility] (Rec: 06/26/24 10:30 [facility] [id number]) OT TLN-Ggwu-Hstagrx General Evaluation Self-Feeding Ability Independent OT ADL-Grooming General Evaluation Grooming Ability Standby Assistance Areas Needing Assistance Retrieving/Set-up of Grooming Items Comments OT Grooming Comments Able to to while standing with the FWW by the sink. OT ADL-Oral Care General Eval Oral Care Ability Independent OT ADL-Dressing General Eval Upper Body Dressing Ability Independent Lower Body Dressing Ability Minimal Assistance Areas Needing Assistance Socks Comments OT Dressing Comments ABle to show pt use of sock aid and practice LB dressing with visitor information assistant for underwear and pants. Pt states to look into getting a sock aid. OT ADL-Toileting General Evaluation Toileting Ability Minimal Assistance Areas Needing Assistance Manage Clothing Comments OT Toileting Comments Educated best to use wet wipes and stand for hygiene needs to best follow her back precautions. OT ADL-Bathing Comments OT Bathing Comments Educated best to cover the dressing and have assist. M5 OT- IP IADL's Start: 06/26/24 10:16 Freq: Status: Active Protocol: Document 06/26/24 10:16 [facility] (Rec: 06/26/24 10:30 [facility] [id number]) OT-Instrumental Activities of Daily Living Deficits IADL Deficits Identified Deficits Home Safety Awareness Awareness of Need for Assistance at Home Decreased Awareness Ability to Problem Solve Emergency Able to Problem Solve Situations Home Safety Comments Pt is very independent and stubborn per her daughter. Meal Preparation Meal Preparation Caregiver Provides Assist Guitar Instructor Guitar Instructor Caregiver Provides Assist M6 OT- IP Functional Cognition Start: 06/26/24 10:16 Freq: Status: Active Protocol: Document 06/26/24 10:16 [facility] (Rec: 06/26/24 10:30 [facility] [id number]) Cognitive Factors Limiting Selfcare Function Cognitive Ability Level of Alertness Alert Patient Orientation Name,Age,Birthday,Month,Date, Year,Day of Week,Place, Situation Attention Span Ability Capable of Focused Attention, Capable of Sustained Attention Ability to Follow Commands Able to Follow One Step Commands Safety Awareness Decreased Recall of Precautions,Decreased Ability to Apply Precautions, Underestimates Need for Assistance Cognitive Comments Cognitive Assessment Comments Pt needing reminders to recall and follow her hip precautions for ADL and mobility needs. Pt is a little impulsive and needing cues for safety. OT- Vision and Hearing OT- Hearing Assessment OT- Hearing Assessment WFL OT- Vision Assessment Visual Acuity WFL Visual Attentiveness WFL Occular Pursuits WFL M7 OT- IP Mobility and Balance Start: 06/26/24 10:16 Freq: Status: Active Protocol: Document 06/26/24 10:16 [facility] (Rec: 06/26/24 10:30 [facility] [id number]) OT- Bed Mobility Assessment Supine to Sit Supine to Sit Assist Standby Assistance Scooting Scooting to Edge of Bed Standby Assistance OT-Transfer Assessment Sit to and From Stand Sit to and from Stand Contact Guard Assistance Transfers Transfer Ability Standby Assistance,Contact Guard Assistance Technique Transfer Destination Bed,Chair,Toilet Transfer Technique Stand Step Pivot Devices Transfer Assistive Devices Gait Belt,Front Wheeled Walker Comments Mobility Comments Pt able to move her LLE independently to the edge of the bed. CGA to stand and assist to be sure that her RLE does not internally rotate when coming to stand. CGA to ambulate to close SBA. OT- Balance Assessment Sitting Balance and Reactions Static Sitting Balance Ability Good Dynamic Sitting Balance Ability Good Standing Balance and Reactions Static Standing Balance Ability Fair Dynamic Standing Balance Ability Fair M8 OT- IP Objective Assessments Start: 06/26/24 10:16 Freq: Status: Active Protocol: Document 06/26/24 10:16 [facility] (Rec: 06/26/24 10:30 [facility] [id number]) OT Gross Range of Motion Upper Extremity Range of Motion Assessment Within Functional Limits OT Strength Upper Extremity Strength Assessment Within Functional Limits M9 OT- IP Assessment and Plan Start: 06/26/24 10:16 Freq: Status: Active Protocol: Document 06/26/24 10:16 [facility] (Rec: 06/26/24 10:30 [facility] [id number]) OT Summary Assessment and Plan Potential Rehabilitation Potential Excellent Analytic Complexity at Evaluation Low Summary OT Impairments Pain,Strength,Balance, Functional Mobility,Dressing, Toileting,Bathing,Toilet Transfers,Shower Transfers, Activity Tolerance Progress Towards Goals Progressing Toward Goals Assessment Summary Pt low complexity and main barriers are steps, pain, and needing reminders to incorporate her hip precautions for ADL and mobility needs. Pt's daughter present and able to assist pt for ADL and mobility needs. Pt to go home when medically stable and do outpt PT. Goals Grooming Goal Independent Dressing Goal Independent,Flight Nurse,Sock Aid Toileting Goal Independent Bathing Goal Standby Assistance Toilet Transfer Goal Independent Shower Transfer Goal Standby Assistance Days to Meet Goals 5 Frequency of Treatment Other frequency 5x/week Treatment Plan OT Treatment Plan ADL Training,Functional Cognition Training,Functional Mobility,Patient/Family Education,Discharge Planning Discharge Recommendations OT Discharge Recommendations Home with 24/ Assist Available,Outpatient PT Home Equipment Needs sock aid Transportation Needs at Discharge Private Vehicle
[2024-06-26] MEDS: DOCUSATE 100 MG CAPSULE PO (09:19)
[2024-06-26] MEDS: ASPIRIN EC 81 MG TABLET PO (09:19)
[2024-06-26] MEDS: IBUPROFEN 400 MG TABLET PO (09:19)
--- NOTE | 2024-06-26 10:41 | CM.DANOTE ---
DCP Assessment Note: Pt is a 83yo female, resident of [place], is admitted for L RONY. Pt lives in a mobile home, alone, but daughter lives down the street. Pt's Primary Care Provider is Marilyn Vitale PA-C and insurance is [employer]. Reviewed chart and team rounds for pt's medical status and initial discharge needs. DCP met w/patient at bedside; introduced self and role. Patient was found sitting up in chair, alert and oriented, cooperative with assessment. Pt confirmed living situation and good support in daughter. Pt expressed preference in returning home when medically stable with daughter to assist with initial needs. Per OT, recommending home with 20/05 assist, outpatient PT. PT recs pending. Pt declined any need for HH referral or other services in community. Plan: Anticipating discharge home (DC orders in) with daughter to transport, pending final recommendations/eval from PT/OT. CM team will follow closely for coordination of discharge plans. [place] Discharge Planning/Care Management CM Discharge Assessment Start: 06/26/24 10:39 Freq: Status: Active Protocol: Document 06/26/24 10:39 MW (Rec: 06/26/24 10:41 MW [id number]) Discharge Planning Assessment Assigned Sports Equipment Racker DEEPTHI Swift DPASHLY/Assigned Designee Name Clemencia Wynn Contact Information [phone] Advance Directives? No History Provided By Patient Has Patient been admitted in last 30 No days? Prior Living Arrangements Mobile home Comment Daughter lives down the street. Household Members none Type of transporation used prior to Drives own vehicle admit Independent with ADL's Yes Is patient alert and oriented? Yes Caregiver for Another No DME Already Rented / Owned FWW / Walker,Cane Barriers to Discharge No Discharge Plan Home Referrals Initiated None needed Review Status In Process Please Provide Date Initial DC 06/26/24 Assessment Was Performed Next Review Type Continued Stay Review
--- NOTE | 2024-06-26 10:45 | PT.IIE ---
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) Displaced subtrochanteric fracture of left femur, sequela (06/25/24) Surgery Performed Operation Date: 06/25/24 10:15 Actual Procedures p RONY posterior with Removal of retained internal fixation(Left) - Tenisha William MD Surgical History (Last Updated 06/24/24 @ 10:23 by Faby Price, RN) History of colonoscopy (06/17/24) History of open reduction and internal fixation (ORIF) procedure (~1999) Medical History (Last Updated 06/24/24 @ 10:04 by Faby Price RN) CVA (cerebral vascular accident) (~2018) HTN (hypertension) Hyperchloremia Hypothyroid Physical Therapy Inpatient Evaluation/Re-Eval M1 PT/OT-IP Prior Functional Status Start: 06/26/24 13:25 Freq: NEEDED Status: Active Protocol: Document 06/26/24 10:45 AB (Rec: 06/26/24 13:40 AB [id number]) Medical Review Prior Functional Status Medical History Reviewed Yes Communication able to make needs known Mobility and Gait pt stated that she was independent with all mobilities and ambulation without AD Activities of Daily Living and IADL's Pt states unable to put on her socks. Social History Household Members none Living Arrangements Mobile home Number of Floors (Floors) One Floor Number of Stairs To Enter/Railing? 5 steps R rail ascending to enter the house Home Environment Standard Height Toilet,Walk in Shower Home Equipment Front Wheel Walker,Straight Cane,Raised Toilet Seat w/ Armrests,Shower Seat with Backrest,Hand Held Shower Additional Social History Comment pt's daughter will stay with pt and assist as long as needed M2 PT-IP Current Condition Start: 06/26/24 13:25 Freq: NEEDED Status: Active Protocol: Document 06/26/24 10:45 AB (Rec: 06/26/24 13:40 AB [id number]) Physical Therapy Current Condition Current Condition Evaluation Date 06/26/24 Treatment Diagnosis s/p L RONY revision posterior; difficulty in walking Onset Date 06/25/24 M3 PT-IP Subjective Start: 06/26/24 13:25 Freq: NEEDED Status: Active Protocol: Document 06/26/24 10:45 AB (Rec: 06/26/24 13:40 AB [id number]) Subjective Physical Therapy Visit Type Type Initial Evaluation Visit Start Time 10:45 Visit Stop Time 11:45 Number of ANGULAR JS DEVELOPER Visits 0 Physical Therapy Visit Comments Patient Comments agreeable to do PT Therapy Pain Assessment Pain When Pain Assessed At Rest Pain Present Pain Present Pain Reported Location hip Intensity 3 Scale Used L hip Pain Management Techniques Apply Cold,Distraction, Modification of Treatment,Re- positioning,Timing of Activity with Medications M4 PT-IP Mobility and Gait Start: 06/26/24 13:25 Freq: NEEDED Status: Active Protocol: Document 06/26/24 10:45 AB (Rec: 06/26/24 13:40 AB [id number]) PT-Bed Mobility Assessment Supine to Sit Supine to Sit Standby Assistance Sit to Supine Sit to Supine Standby Assistance PT-Transfer Assessment Sit to and From Stand Sit to and from Stand Minimal Assistance,Moderate Assistance,1 Person Assistance ,Use of Upper Extremities Equipment Transfer Assistive Device Gait Belt,Front Wheeled Walker Orthotic/Prosthetic Devices or Brace: No Transfers Transfer Destination Bed,Chair Transfer Technique ambulated Transfer Ability Level of Assist Contact Guard Assistance,1 Person Assistance,Use of Upper Extremities Comments Mobility Comments pt sitting on the chair. pt's daughter in room with pt. obtained PLOF and home set up. reviewed posterior hip precautions with pt. pt initially requiring cues to recall. pt completed sit to stand from the chair mod A and max cues for techniques. LLE with tendency to IR and cued to correct. pt completed sit< >stand x 3 reps. pt ambulated using FWW CGA to EOB. completed sit<>supine SBA and cues for techniques. caregiver training conducted. pt's daughter was able to put safety belt on. assisted pt with sit to stand and ambulation in the hallway using FWW CGA ~ 125 ft. stair climbing training: PT demonstrated and educated pt and daughter on how to do stairs using R rail+ SPC. pt completed up/down steps with daughter assisting min A and cues. assisted pt back to her room. ambulated from w/c to chair using fWW CGA with daughter assisting. positioned pt on the chair. call light and table placed within reach. pt and daughter without further concerns. Gait Assessment Gait Gait Assistance Required: Contact Guard Assist Distance (Feet) 125 Able to Maintain Weight Bearing Status Yes During Gait Assistive Devices Assistive Device Gait Belt,Front Wheeled Walker Orthotic/Prosthetic Devices or Brace: No Gait Deviations General Gait Pattern Antalgic,Decreased Stride Length,Decreased Feet Clearance Factors Limiting Gait Function Factors Limiting Gait Function Decreased Activity Tolerance, Decreased Strength,Difficulty Following Directions,Limited Range of Motion,Pain,Poor Balance,Poor Safety Awareness Stair Climbing Assessment Evaluation Level of Assist On Stairs Minimal Assistance Devices Stair Climbing Assistive Devices Straight Cane,Right Railing Technique/Endurance Stair Climbing Direction Ascend and Descend Stair Climbing Technique Step to Step Number of Steps Climbed 3 Query Text: Stair Climbing Set # Repetitions (reps) 1 PT-Balance Assessment Sitting Balance and Reactions Static Sitting Balance Ability Normal Dynamic Sitting Balance Ability Good Standing Balance and Reactions Static Standing Balance Ability Fair Dynamic Standing Balance Ability Fair Device Used FWW M5 PT-IP Objective Assessments Start: 06/26/24 13:25 Freq: NEEDED Status: Active Protocol: Document 06/26/24 10:45 AB (Rec: 06/26/24 13:40 AB [id number]) Orientation Orientation/Cognition Level of Alertness Alert Orientation Name,Place,Situation Language Function Ability Hard of Hearing Safety Awareness Decreased Safety Awareness Memory Description Short Term Impaired Gross Range of Motion Lower Extremity ROM Assessment Within Functional Limits Strength Lower Extremity Strength Assessment Left Impaired Hip 3-/5 Knee 4-/5 Sensation Assessment Sensation Gross Sensation WNL Muscle Tone Muscle Tone WNL Yes M6 PT-IP Treatment Start: 06/26/24 13:25 Freq: NEEDED Status: Active Protocol: Document 06/26/24 10:45 AB (Rec: 06/26/24 13:40 AB [id number]) Physical Therapy Treatment Education Education Provided Precautions,Weight Bearing Status,Post-Op Packet,Safety M7 PT-IP Assessment and Plan Start: 06/26/24 13:25 Freq: NEEDED Status: Active Protocol: Document 06/26/24 10:45 AB (Rec: 06/26/24 13:40 AB [id number]) PT Summary Assessment and Plan Potential Rehabilitation Potential Fair Status of Condition at Evaluation Stable Summary Impairments Pain,ROM,Strength,Balance, Coordination,Sensation,Tone, Cognition,Bed Mobility, Transfers,Gait,Activity Tolerance Assessment Summary pt is an 83 y/o F s/p L RONY revision posterior approach POD 1. pt with posterior hip precautions LLE and is WBAT. pt requiring SBA with bed mobility, CGA to min A with sit to stand and CGA for ambulation using FWW. caregiver training conducted and kailyn was able to assist pt safely. stair climbing training also conducted. pt plans to go home and has daughter to assist her. pt also has outpt PT setup. pt may go home when medically stable. Goals Bed Mobility Goal Independent Transfer Goal Independent,Front Wheeled Walker Gait Goal Independent,Front Wheel Walker Gait Distance 200 Other Goals up/down 5 steps using R rail ascending + SPC mod I Days to Meet Goals 5 Frequency of Treatment Frequency Of Treatment Twice a Day Treatment Plan Physical Therapy Treatment Plan Bed Mobility Training,Transfer Training,Gait Training, Therapeutic Exercise,Balance Retraining,Post Op Education, Discharge Planning,Hot or Cold Pack,Neuromuscular Re-ed, Coordination Retraining,Manual Therapy Precautions Posterior Hip Precautions No Hip Flexion > 90 degrees,No Hip Internal Rotation,No Hip Adduction Weight Bearing Status Weight Bearing Status Weight Bear as Tolerated Allowed Weight Bearing Amount (enter % LLE WBAT or #) (%) Recommendations To Nursing Amount of Assist Needed 1 Person Assist Discharge Recommendations PT Discharge Recommendations Home with Assistance, Outpatient PT Transportation Needs at Discharge Private Vehicle
--- NOTE | 2024-06-26 11:18 | PC.NURSE ---
Patient has a kira dressing that is cdi, she has been up and worked with O.T. Patient visiting with her daughter, she will most likely be discharged after lunch and after doing stairs and working with physical therapy. She had some ibuprofen and tylenol for comfort and is resting in her chair now.
== END 2024-06-26 13:20 | disposition home or self-care (01) | DRG 470 ==
PROVIDERS: Admitting Provider Orthopaedic Surgery; PCP Physician Assistant Medical; Referring Provider Orthopaedic Surgery; Visit Provider Orthopaedic Surgery
PROC: 0SRB0JZ Replacement of Left Hip Joint with Synthetic Substitute, Open Approach (ICD-10-PCS; CPT 27130; principal; 2024-06-25 10:15)
DX: M16.52 Unilateral post-traumatic osteoarthritis, left hip (principal); M87.052 Idiopathic aseptic necrosis of left femur; S72.22 Displaced subtrochanteric fracture of left femur; R00.1 Bradycardia, unspecified; I45.10 Unspecified right bundle-branch block; I10 Essential (primary) hypertension; E78.5 Hyperlipidemia, unspecified; E03.9 Hypothyroidism, unspecified; W14.XXXS Fall from tree, sequela; Z86.73 Personal history of transient ischemic attack (TIA), and cerebral infarction without residual deficits
CPT/HCPCS: 36415; 72170; 73502; 85014; 85018; 94762; 97161; 97165; 97530; 97535; C1776; C9290; J0171; J0690; J1100; J1170; J2405; J2704; J3010

== ENCOUNTER 2024-08-03 14:59 | Emergency (ER) | payer MEDICARE, SELFPAY ==
[2024-06-25 15:52] VITALS: BMI 23.3
[2024-08-03 15:26] VITALS: BP 120/58; PULSE 71; RESP 16; TEMP 36.6; O2SAT 97; BMI 23.3
--- NOTE | 2024-08-03 15:30 | DI.RAD.S_ITS ---
PROCEDURE: XR HIP W PEL IF DONE LT 2V INDICATIONS: pain with walking, post total hip 06/25 TECHNIQUE: AP pelvis with lateral view(s) of the left hip(s). COMPARISON: [facility], CR, XR HIP W PEL IF DONE LT 2V, 06/25/2024, 14:21. [facility], CR, XR HIP W PEL IF DONE LT 2V, 04/26/2021, 10:35. FINDINGS: Bones: Left total hip arthroplasty, without evidence of loosening. Ghost tracks of prior screw and irma fixation of the left femur. Retained screw present. Soft tissues: The visualized bowel gas pattern is normal. No suspicious soft tissue calcifications. IMPRESSION: No acute abnormality, status post left hip revision and arthroplasty placement. Dictated by: Lloyd Lopez M.D. on 08/03/2024 at 15:59 Approved by: Lloyd Lopez M.D. on 08/03/2024 at 16:00
[2024-08-03 17:50] LABS: Add Manual Diff / Slide Review NO; Basophils Absolute Auto 100 /uL (0-100); Basophils Percent Auto 0.9 % (0-2); Eosinophils Absolute Auto 200 /uL (0-450); Eosinophils Percent Auto 2.7 % (2-4); Hematocrit 38.9 % (36-46); Hemoglobin 13.1 g/dL (12.0-16.0); Lymphocytes Absolute Auto 3100 /uL (1100-4500); Lymphocytes Percent Auto 34.8 % (25-40); Mean Corpuscular HGB Conc 33.7 % (30-36); Monocytes Absolute Auto 700 /uL (0-900); Monocytes Percent Auto 7.6 % (3-14); Neutrophils Absolute Auto 4800 /uL (1500-7000); Platelet Count 274 X10^3/uL (150-400); Red Cell Distribution Width 13.2 % (11.6-14.8); White Blood Cell Count 8.9 X10^3/uL (4.5-11.0)
[2024-08-03 18:04] LABS: Alanine Aminotransferase 25 IU/L (<35); Albumin 4.2 g/dL (3.5-5.0); Albumin Globulin Ratio 1.4 (1.0-2.8); Alkaline Phosphatase 121 U/L (38-126); Aspartate Aminotransferase 34 IU/L (14-36); BUN Creatinine Ratio 31.9 (6-22); Blood Urea Nitrogen 23 mg/dL (7-17); C-Reactive Protein Quant < 0.5 mg/dL (<1.0); Calcium 9.4 mg/dL (8.4-10.2); Carbon Dioxide 27 mmol/L (22-32); Chloride 106 mmol/L (98-107); Estimated Glomerular Filt Rate > 60 mL/min (>60); Globulin 3.1 g/dL (1.7-4.1); Glucose 98 mg/dL (80-110); HEMOLYSIS < 15 (0-50); Potassium 4.1 mmol/L (3.4-5.1); Sodium 140 mmol/L (137-145); Total Protein 7.3 g/dL (6.3-8.2)
[2024-08-03 18:09] LABS: Erythrocyte Sedimentation Rate 23 MM/HR (0-20)
--- NOTE | 2024-08-03 18:16 | ED.EXTPRO ---
HPI - Extremity Problem <Martín Nolasco PA-C - Last Filed: 08/10/24 14:15> General Chief complaint: Extremity Problem,Nontraumatic Stated complaint: L Leg Pain Post Sx Time Seen by Provider: 08/03/24 16:07 Source: patient Mode of arrival: Wheelchair History of Present Illness HPI Narrative: 83-year-old female status post a left hip replacement on 06/25/2024 presents to the ED with left-sided pain, unable to bear weight on the left leg. Patient states that she had a few physical therapy sessions, after the last physical therapy session has worsened pain. Patient has an appointment with her ortho surgeon Dr. William in 2 days. Denies numbness, tingling, weakness. No fever, chills. Related Data Home Medications Medication Instructions Recorded Confirmed amlodipine 5 mg tablet 5 mg PO DAILY blood pressure 06/17/24 06/25/24 atorvastatin 40 mg tablet 40 mg PO QPM cholesterol 06/17/24 06/25/24 levothyroxine 50 mcg tablet 50 mcg PO DAILY 06/17/24 06/25/24 Previous Rx's Medication Instructions Recorded aspirin 81 mg tablet,delayed 81 mg PO BID #90 tabs 06/26/24 release Allergies Allergy/AdvReac Type Severity Reaction Status Date / Time No Known Drug Allergies Allergy Verified 08/03/24 15:26 Review of Systems <Martín Nolasco PA-C - Last Filed: 08/10/24 14:15> Constitutional Constitutional: Denies chills, Denies fatigue, Denies fever(s), Denies frequent falls, Denies lethargy and Denies weakness Eyes Eyes: Denies change in vision, Denies eye discharge, Denies irritation and Denies loss of vision ENT Ears, Nose, Mouth, and Throat: Denies change in voice, Denies dizziness, Denies neck pain, Denies sore throat and Denies throat swelling Cardiovascular Cardiovascular: Denies chest pain, Denies irregular heart rhythm, Denies lightheadedness, Denies palpitations, Denies dyspnea, Denies dyspnea on exertion and Denies orthopnea Respiratory Respiratory: Denies cough, Denies dyspnea, Denies dyspnea on exertion and Denies wheezing Gastrointestinal Gastrointestinal: Denies abdominal pain, Denies change in bowel habits, Denies diarrhea, Denies nausea and Denies vomiting Musculoskeletal Musculoskeletal: Denies neck pain and Denies numbness Comments: Left-sided hip pain Integumentary/Breasts Skin/Breast: Denies pruritus, Denies erythema, Denies rash and Denies wounds Neurologic Neurologic: Denies behavioral changes, Denies confusion, Denies dizziness, Denies frequent falls, Denies loss of vision, Denies numbness and Denies weakness Psychiatric Psychiatric: Denies anxiety, Denies behavioral changes, Denies confusion, Denies depression, Denies homicidal ideation and Denies suicidal ideation Endocrine Endocrine: Denies fatigue, Denies flushing and Denies palpitations Hematologic/Lymphatic Hematologic/Lymphatic: Denies easy bruising Allergic/Immunologic Allergic/Immunologic: Denies urticaria, Denies throat swelling and Denies wheezing Patient History <Martín Nolasco PA-C - Last Filed: 08/10/24 14:15> Medical History (Updated 08/03/24 @ 18:09 by Martín Nolasco PA-C) HTN (hypertension) Hyperchloremia CVA (cerebral vascular accident) (~2018) Hypothyroid Surgical History (Updated 06/24/24 @ 10:23 by Faby Price RN) History of open reduction and internal fixation (ORIF) procedure (~1999) History of colonoscopy (06/17/24) Social History household members: none Smoking Status: Never smoker alcohol intake: current Smoking Status: Never smoker alcohol intake frequency: a few times a week Substance Use Type: does not use Exam <Martín Nolasco PA-C - Last Filed: 08/10/24 14:15> Narrative Exam Narrative: Const General:?cooperative, healthy appearing and comfortable [facility] Head:?normal to inspection Ears:?hearing grossly normal bilaterally Nose:?external nose normal Face and sinus:?normal facial exam and sinuses nontender Mouth:?oral mucosae normal Throat:?posterior oropharynx normal Eyes General:?appearance normal, both eyes and all related structures Neck Neck:?normal visual inspection and no lymphadenopathy noted Resp Effort & Inspection:?normal respiratory effort Auscultation:?clear to auscultation bilaterally Cardio Rate:?regular rate Rhythm:?regular rhythm Musculoskeletal No swelling, erythema. Patient is able to flex and extend the hip, although painful. Painful to bear weight. Neurovascularly intact. Neuro General:?patient alert, patient awake and patient oriented x3 Initial Vital Signs Initial Vital Signs: Vital Signs Temperature 97.9 F 08/03/24 15:26 Pulse Rate 71 08/03/24 15:26 Respiratory Rate 16 08/03/24 15:26 Blood Pressure 120/58 L 08/03/24 15:26 Pulse Oximetry 97 08/03/24 15:26 Oxygen Delivery Method Room Air 08/03/24 15:26 <Barb Trujillo DO - Last Filed: 08/10/24 23:13> Initial Vital Signs Initial Vital Signs: Vital Signs Temperature 97.9 F 08/03/24 15:26 Pulse Rate 71 08/03/24 15:26 Respiratory Rate 16 08/03/24 15:26 Blood Pressure 120/58 L 08/03/24 15:26 Pulse Oximetry 97 08/03/24 15:26 Oxygen Delivery Method Room Air 08/03/24 15:26 Course <JASMYN Adams Last Filed: 08/10/24 14:15> Orders Ordered: ED Orders 08/03/24 15:30 XR hip w pel if done LT 2V Stat 08/03/24 17:40 CBC Auto Diff [Complete Blood Count AUTO DIFF] Stat CMP [Comprehensive Metabolic Panel] Stat CRP [C-Reactive Protein Quant] Stat ESR [Erythrocyte Sedimentation Rate] Stat Lactate (Lactic Acid) Stat Vital Signs Vital signs: Vital Signs - 8 hr 08/03/24 15:26 Temperature 97.9 F Pulse Rate 71 Respiratory Rate 16 Blood Pressure 120/58 L Pulse Oximetry 97 Oxygen Delivery Method Room Air <Barb Trjuillo DO - Last Filed: 08/10/24 23:13> Orders Ordered: ED Orders 08/03/24 15:30 XR hip w pel if done LT 2V Stat 08/03/24 17:40 CBC Auto Diff [Complete Blood Count AUTO DIFF] Stat CMP [Comprehensive Metabolic Panel] Stat CRP [C-Reactive Protein Quant] Stat ESR [Erythrocyte Sedimentation Rate] Stat Lactate (Lactic Acid) Stat Vital Signs Vital signs: Vital Signs - 8 hr 08/03/24 15:26 Temperature 97.9 F Pulse Rate 71 Respiratory Rate 16 Blood Pressure 120/58 L Pulse Oximetry 97 Oxygen Delivery Method Room Air MDM - Extremity (Nontraumatic) <JASMYN Adams Last Filed: 08/10/24 14:15> Lab Data 08/03/24 17:40 08/03/24 17:40 Labs: Lab Results 08/03/24 Range/Units 17:40 WBC 8.9 (4.5-11.0) X10^3/uL RBC 4.10 (4.0-5.2) X10^6/uL Hgb 13.1 (12.0-16.0) g/dL Hct 38.9 (36-46) % MCV 95.0 (80-100) fL MCH 32.0 (26-34) PG MCHC 33.7 (30-36) % RDW 13.2 (11.6-14.8) % Plt Count 274 (150-400) X10^3/uL Neut % (Auto) 54.0 (50-75) % Lymph % (Auto) 34.8 (25-40) % [place] % (Auto) 7.6 (3-14) % Eos % (Auto) 2.7 (2-4) % Baso % (Auto) 0.9 (0-2) % Neut # (Auto) 4800 (5044-3432) /uL Lymph # (Auto) 3100 (4411-0147) /uL [place] # (Auto) 700 (0-900) /uL Eos # (Auto) 200 (0-450) /uL Baso # (Auto) 100 (0-100) /uL ESR 23 H (0-20) MM/HR Sodium 140 (137-145) mmol/L Potassium 4.1 (3.4-5.1) mmol/L Chloride 106 (98-107) mmol/L Carbon Dioxide 27 (22-32) mmol/L BUN 23 H (7-17) mg/dL Creatinine 0.72 (0.52-1.04) mg/dL Estimated GFR > 60 (>60) mL/min BUN/Creatinine Ratio 31.9 H (6-22) Glucose 98 (80-110) mg/dL Lactate 1.0 (0.7-2.1) mmol/L Calcium 9.4 (8.4-10.2) mg/dL Total Bilirubin 1.0 (0.2-1.3) mg/dL AST 34 (14-36) IU/L ALT 25 (<35) IU/L Alkaline Phosphatase 121 (38-126) U/L C-Reactive Protein < 0.5 (<1.0) mg/dL Total Protein 7.3 (6.3-8.2) g/dL Albumin 4.2 (3.5-5.0) g/dL Globulin 3.1 (1.7-4.1) g/dL Albumin/Globulin Ratio 1.4 (1.0-2.8) MDM Narrative Medical decision making narrative: 83-year-old female status post a left hip replacement on 06/25/2024 presents to the ED with left-sided pain, unable to bear weight on the left leg. Concern for fracture/dislocation versus musculoskeletal sprain/strain versus septic arthritis versus other. Hip x-ray without acute findings. ESR slightly elevated to 23. CRP and all other labs within normal limits. Dr. Hansen from [facility] was consulted regarding the elevated ESR and possibility of an infection. Given a normal CRP and slightly elevated ESR, his feedback was that this was more related to recovering from the surgery versus infection. Discussed findings with patient. Patient agrees to follow-up with Dr. William an 2 days as scheduled. ED return precautions discussed with patient. Patient verbalized understanding. Medical records reviewed: Yes <Barb Trujillo DO - Last Filed: 08/10/24 23:13> Lab Data Labs: Lab Results 08/03/24 Range/Units 17:40 WBC 8.9 (4.5-11.0) X10^3/uL RBC 4.10 (4.0-5.2) X10^6/uL Hgb 13.1 (12.0-16.0) g/dL Hct 38.9 (36-46) % MCV 95.0 (80-100) fL MCH 32.0 (26-34) PG MCHC 33.7 (30-36) % RDW 13.2 (11.6-14.8) % Plt Count 274 (150-400) X10^3/uL Neut % (Auto) 54.0 (50-75) % Lymph % (Auto) 34.8 (25-40) % [place] % (Auto) 7.6 (3-14) % Eos % (Auto) 2.7 (2-4) % Baso % (Auto) 0.9 (0-2) % Neut # (Auto) 4800 (7392-1406) /uL Lymph # (Auto) 3100 (7175-5737) /uL [place] # (Auto) 700 (0-900) /uL Eos # (Auto) 200 (0-450) /uL Baso # (Auto) 100 (0-100) /uL ESR 23 H (0-20) MM/HR Sodium 140 (137-145) mmol/L Potassium 4.1 (3.4-5.1) mmol/L Chloride 106 (98-107) mmol/L Carbon Dioxide 27 (22-32) mmol/L BUN 23 H (7-17) mg/dL Creatinine 0.72 (0.52-1.04) mg/dL Estimated GFR > 60 (>60) mL/min BUN/Creatinine Ratio 31.9 H (6-22) Glucose 98 (80-110) mg/dL Lactate 1.0 (0.7-2.1) mmol/L Calcium 9.4 (8.4-10.2) mg/dL Total Bilirubin 1.0 (0.2-1.3) mg/dL AST 34 (14-36) IU/L ALT 25 (<35) IU/L Alkaline Phosphatase 121 (38-126) U/L C-Reactive Protein < 0.5 (<1.0) mg/dL Total Protein 7.3 (6.3-8.2) g/dL Albumin 4.2 (3.5-5.0) g/dL Globulin 3.1 (1.7-4.1) g/dL Albumin/Globulin Ratio 1.4 (1.0-2.8) Discharge Plan Departure Patient Disposition: Home Clinical Impression: Hip pain Qualifiers: Laterality: left Qualified Code(s): M25.552 - Pain in left hip Instructions: DI for Hip Pain Activity Restrictions/Additional Instructions: You were evaluated in the ED today for hip pain. Your x-ray and labs were normal. It is likely that the activity from the physical therapy has caused some musculoskeletal sprain/strain. Please follow-up with your physical therapist for further evaluation. Please also keep your appointment with Dr. Tenisha William as scheduled for later this week. Return to the ED if you have worsening symptoms, fever, chills, nausea, vomiting. Prescriptions: No Action amlodipine 5 mg tablet 5 mg PO DAILY atorvastatin 40 mg tablet 40 mg PO QPM levothyroxine 50 mcg tablet 50 mcg PO DAILY aspirin 81 mg Tablet,Delayed Release (Dr/Ec) 81 mg PO BID Qty: 90 0RF Referrals: Olivia Vitale PA-C [Primary Care Provider] - Stand Alone Forms: Patient Portal/API ED Sign-out <Barb Trujillo DO - Last Filed: 08/10/24 23:13> Cosign ED Attending Cosignature Attestation: I was available for consultation.
[2024-08-03 18:39] VITALS: BP 141/76; PULSE 74; RESP 18; O2SAT 98
== END 2024-08-03 18:39 | disposition home or self-care (01) ==
PROVIDERS: Emergency Provider Student in an Organized Health Care Education/Training Program; PCP Physician Assistant Medical
DX: M25.552 Pain in left hip (principal); Z96.642 Presence of left artificial hip joint
CPT/HCPCS: 36415; 73502; 80053; 83605; 85025; 85651; 86140; 99283; 99284